=== PATIENT | male | born 1940 | race Caucasian/White ===

== ENCOUNTER → 2017-01-29 | Outpatient (CLI) | payer OTHER, MEDICARE ==
[~2017-01-29] MED LIST: CETI10TA84 PO; CHOL100010 PO; CLTP PO; COEN1CAP28 PO; CRS10 PO; FLUT0.15 NAE; MULT-506 PO; OMEG10007 PO; WARF-237 PO; WARF5TAB7 PO
--- NOTE | 2017-01-29 15:08 | DIAGNOSTIC IMAGING REPORT ---
PELVIS 1 OR 2 VIEW ROUTINE, LEFT HIP UNILATERAL 2 VIEWS CLINICAL HISTORY: M16.9 Osteoarthritis of hipM88.9 Paget's disease of the boneM25. COMPARISON STUDY: Pelvis and left hip 01/13/2016. FINDINGS: There is again noted moderate to severe osteoarthritis within the left hip with [id number] articulation and subchondral sclerosis. No acute fracture or dislocation within the pelvis or hips. No change in the abnormal trabecular pattern within the left hemipelvis consistent with Paget's disease. The sacrum is intact. Soft tissues are unremarkable. IMPRESSION: No change from the prior study. Advanced osteoarthritis within the left hip. 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 Electronically signed by: Anton Kate M.D. 01/29/2017 3:06 PM Dictated Date/Time: 01/29/2017 3:01 PM
--- NOTE | 2017-01-29 15:08 | DIAGNOSTIC IMAGING REPORT ---
PELVIS 1 OR 2 VIEW ROUTINE, LEFT HIP UNILATERAL 2 VIEWS CLINICAL HISTORY: M16.9 Osteoarthritis of hipM88.9 Paget's disease of the boneM25. COMPARISON STUDY: Pelvis and left hip 01/13/2016. FINDINGS: There is again noted moderate to severe osteoarthritis within the left hip with [id number] articulation and subchondral sclerosis. No acute fracture or dislocation within the pelvis or hips. No change in the abnormal trabecular pattern within the left hemipelvis consistent with Paget's disease. The sacrum is intact. Soft tissues are unremarkable. IMPRESSION: No change from the prior study. Advanced osteoarthritis within the left hip. 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 Electronically signed by: Anton Kate M.D. 01/29/2017 3:06 PM Dictated Date/Time: 01/29/2017 3:01 PM
[2017-01-29 16:04] LABS: ALKALINE PHOSPHATASE 53 U/L (45-117); ALT/SGPT 29 U/L (12-78); AST/SGOT 24 U/L (15-37)
== END | disposition home or self-care (01) ==
LOC: C.RAD1850 14:36
PROVIDERS: ATTEND Internal Medicine Rheumatology
DX: M16.9 Osteoarthritis of hip, unspecified (principal); M25.552 Pain in left hip; M88.9 Osteitis deformans of unspecified bone

== ENCOUNTER → 2018-01-28 | Outpatient (CLI) | payer OTHER, MEDICARE | END | disposition home or self-care (01) | LOC: C.MAMM 13:32 | PROVIDERS: ATTEND Family Medicine | DX: Z00.00 Encounter for general adult medical examination without abnormal findings (principal); Z12.11 Encounter for screening for malignant neoplasm of colon ==